=== PATIENT | male | born 1975 | race Caucasian/White ===

== ENCOUNTER 2021-08-13 21:20 | Emergency (ER) | payer SELFPAY ==
[~2021-08-13] VITALS: Ht 188 cm; Wt 70.5 kg
--- NOTE | 2021-08-13 21:46 | PHYS DOC ---
General Adult HPI: HPI: ".. I ve been bleeding off and on.. It may be hemorrhoids.. " Patient is a 45 year old male who presents with hx under arrest. Patient states he has had rectal bleeding of and on for months. if now years. Patient has never had a colonoscopy. Patient has had history of hemorrhoids in the past. No history of colitis with him or family members. Patient's grandfather did have colon cancer. Patient has had some recent hard stools. Patient denies any history of bleeding disorder or coagulopathy. Has no petechiae or unexplained areas of ecchymosis. Patient currently not following with primary care. Patient currently under police arrest. No history of rectal intercourse use dildo or instrumentation rectally. Review of Systems: Review of Systems: Constitutional: Denies fever or chills Eyes: Denies change in visual acuity HENT: Denies nasal congestion or sore throat Respiratory: Denies cough or shortness of breath Cardiovascular: Denies chest pain or edema GI: Denies abdominal pain, nausea, vomiting, complains of hemorrhoids and rectal bleeding : Denies dysuria Musculoskeletal: Denies back pain or joint pain Integument: Denies rash Neurologic: Denies headache, focal weakness or sensory changes Endocrine: Denies polyuria or polydipsia Lymphatic: Denies swollen glands Psychiatric: Denies depression or anxiety Family History: Family History: Noncontributory Current Medications: Current Meds: See nursing for home meds Allergies: Allergies: No known drug allergies Physical Exam: PE: Constitutional: , no acute distress, non-toxic appearance. [] HENT: Normocephalic, atraumatic, bilateral external ears normal, oropharynx moist, no oral exudates, nose normal. [] Eyes: PERRLA, EOMI, conjunctiva normal, no discharge. [] Neck: Normal range of motion, no tenderness, supple, no stridor. [] Cardiovascular:Heart rate regular rhythm, no murmur [] Lungs & Thorax: Bilateral breath sounds clear to auscultation [] Abdomen: Bowel sounds normal, soft, no tenderness, no masses, no pulsatile masses. External hemorrhoids and bleeding from small seizure. Digital exam hard stool. Skin: Warm, dry, no erythema, no rash. [] No petechiae or ecchymosis Back: No tenderness, no CVA tenderness. [] Extremities: No tenderness, no cyanosis, no clubbing, ROM intact, no edema. [] Neurologic: Alert and oriented X 3, normal motor function, normal sensory function, no focal deficits noted. [] Psychologic: Affect anxious l, judgement normal, mood normal. [] EKG: EKG: [] Radiology/Procedures: Radiology/Procedures: [] Heart Score: C/O Chest Pain: N/A Risk Factors: Risk Factors: DM, Current or recent (<one month) smoker, HTN, HLP, family history of CAD, obesity. Risk Scores: Score 0 - 3: 2.5% MACE over next 6 weeks - Discharge Home Score 4 - 6: 20.3% MACE over next 6 weeks - Admit for Clinical Observation Score 7 - 10: 72.7% MACE over next 6 weeks - Early Invasive Strategies Course & Med Decision Making: Course & Med Decision Making Pertinent Labs and Imaging studies reviewed. (See chart for details) Recommend patient stay on clear fluids for couple days. Avoid constipation. Recommend colonoscopy since other sources of bleeding may be higher up in the colon. Currently appears to have outlet bleeding from hemorrhoids and a small rectal tear. Patient to follow-up with GI and get a colonoscopy. Impression: 1. Rectal outlet bleeding 2. Hemorrhoid 3. Small rectal tear 4. Constipation [] Dragon Disclaimer: Dragon Disclaimer: This electronic medical record was generated, in whole or in part, using a voice recognition dictation system. Departure Departure: Referrals: PCP,UNKNOWN (PCP) Scripts Hydrocortisone (ANUSOL-HC) 30 Gm Cream..g. 30 GM RC BID for Hemrrhoid bleeding for 15 Days, #30 EACH Prov: KAILEY GARDNER MD 08/13/21 Jacqui Disclaimer This chart was dictated in whole or in part using Voice Recognition software in a busy, high-work load, and often noisy Emergency Department environment. It may contain unintended and wholly unrecognized errors or omissions. KAILEY GARDNER MD Aug 13, 2021 21:46
[2021-08-13] MEDS ORDERED: MAGNESIUM HYDROXIDE 2,400 MG/30 ML ORAL.SUSP. PO ONE (22:15)
[2021-08-13] MEDS ORDERED: HYDR30CR61 RC (22:20)
[2021-08-13] MEDS ORDERED: MAGNESIUM HYDROXIDE 2,400 MG/30 ML ORAL.SUSP. ONE (22:23)
[2021-08-14 01:37] VITALS: BP 132/84
== END 2021-08-13 23:10 ==
LOC: EEVIPCON 21:20 → ER 21:20
DX: S36.63XA Laceration of rectum, initial encounter (principal); K64.4 Residual hemorrhoidal skin tags; K59.00 Constipation, unspecified; X58.XXXA Exposure to other specified factors, initial encounter; Y93.89 Activity, other specified; Y92.89 Other specified places as the place of occurrence of the external cause; Y99.8 Other external cause status
CPT/HCPCS: 99283